=== PATIENT | female | born 1975 | race Caucasian/White ===

== ENCOUNTER 2018-03-02 12:55 | Outpatient (CLI) | payer BC | END 2018-03-02 12:56 | disposition home or self-care (01) | LOC: CONVCARE 12:55 | PROVIDERS: ATTEND Orthopaedic Surgery | DX: M53.3 Sacrococcygeal disorders, not elsewhere classified (principal) | CPT/HCPCS: 72170 ==

== ENCOUNTER 2018-05-13 09:46 | Day surgery (SDC) | payer BC ==
[2018-05-13] MEDS ORDERED: TRIAMCINOLONE ACETONIDE 40 MG/ML SUS ONE (10:10)
[2018-05-13] MEDS ORDERED: BUPIVACAINE HCL 0.25% MPF 30 ML SOL INFIL ONE (10:10)
[2018-05-13 10:46] VITALS: PULSE 70; RESP 12; TEMP 98.4; O2SAT 98
[2018-05-13 10:48] VITALS: BP 123/83
== END 2018-05-13 11:00 | disposition home or self-care (01) ==
LOC: SURG 09:46
PROVIDERS: ATTEND Nurse Anesthetist, Certified Registered
DX: M12.9 Arthropathy, unspecified (principal)
CPT/HCPCS: J3300

== ENCOUNTER 2018-06-30 13:54 | Day surgery (SDC) | payer BC ==
[~2018-06-30 13:54] MED LIST: MOXIFLOXACIN HCL OPHTH 5 MG/ML SOL ONE
[2018-06-30] MEDS ORDERED: BUPIVACAINE HCL 0.5% MPF 10 ML SOL ONE (14:35)
[2018-06-30 14:47] VITALS: RESP 16
[2018-06-30 15:00] VITALS: BP 119/88; PULSE 80; TEMP 98.1; O2SAT 97
== END 2018-06-30 15:12 | disposition home or self-care (01) ==
LOC: SURG 13:54
PROVIDERS: ATTEND Nurse Anesthetist, Certified Registered
DX: M12.88 Other specific arthropathies, not elsewhere classified, other specified site (principal)
CPT/HCPCS: A9270-GY

== ENCOUNTER 2018-07-07 13:44 | Day surgery (SDC) | payer BC ==
[2018-07-07] MEDS ORDERED: LIDOCAINE HCL 1% MPF 30 SOL ONE (14:27)
[2018-07-07 14:39] VITALS: PULSE 74
[2018-07-07 14:51] VITALS: BP 123/79; RESP 20; TEMP 98.1; O2SAT 99
== END 2018-07-07 15:01 | disposition home or self-care (01) ==
LOC: SURG 13:44
PROVIDERS: ATTEND Nurse Anesthetist, Certified Registered
CPT/HCPCS: J2001